=== PATIENT | male | born 1975 | race American Indian/Alaskan Native ===

== ENCOUNTER 2019-07-23 18:23 | Emergency (ER) | payer OTHER ==
[2019-07-23 18:32] VITALS: BP 138/91
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
[2019-07-23] MEDS ORDERED: HYDROcodone/ACETAMINOPHEN 5-325 MG TAB PO STA (19:54)
[2019-07-23] MEDS ORDERED: ONDANSETRON 4 MG ODT TAB PO STA (19:54)
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
== END 2019-07-23 20:55 | disposition home or self-care (01) ==
LOC: ED 18:23
DX: S52.502A Unspecified fracture of the lower end of left radius, initial encounter for closed fracture (principal); S52.615A Nondisplaced fracture of left ulna styloid process, initial encounter for closed fracture; Z79.899 Other long term (current) drug therapy; Z98.890 Other specified postprocedural states; V89.2XXA Person injured in unspecified motor-vehicle accident, traffic, initial encounter; Y92.410 Unspecified street and highway as the place of occurrence of the external cause; Y93.89 Activity, other specified; Y99.8 Other external cause status
CPT/HCPCS: Q0162